=== PATIENT | male | born 1950 | race Caucasian/White ===

== ENCOUNTER → 2017-05-16 | Outpatient (CLI) | payer MEDICARE ==
[2017-05-16 10:11] LABS: EKG EKG PERFORMED
[2017-05-16 10:50] LABS: Appearance,Urine Clear (Clear); Bilirubin,Urine Negative (Negative); Glucose,Urine (UA) Negative (Negative); Ketones,Urine Negative (Negative); Leukocyte Esterase,Urine Negative (Negative); Nitrite,Urine Negative (Negative); Protein,Urine Negative (Negative); Specific Gravity,Urine 1.005 (1.001-1.035); UA Billing (MACRO vs. MICRO) CHEM; Urobilinogen,Urine <2.0 mg/dL (<2.0)
[2017-05-16 10:55] LABS: CH 31.9; HDW 2.43; HGB 14.5 gm/dL (13.0-17.5); MCV 94.2 fL (80.0-100.0); Mean Platelet Volume 7.2; RBC 4.67 m/uL (4.30-5.90); RDW 13.7 % (11.5-15.5); WBC 6.1 k/uL (3.8-10.6)
[2017-05-16 10:59] LABS: Prothrombin Time 10.2 sec (9.0-12.0)
[2017-05-16 11:00] LABS: Partial Thromboplastin Time 25.4 sec (22.0-30.0)
[2017-05-16 11:05] LABS: ALT 39 U/L (21-72); AST 32 U/L (17-59); Alkaline Phosphatase 97 U/L (38-126); Anion Gap 10 mmol/L; Blood Urea Nitrogen 16 mg/dL (9-20); Calcium 9.6 mg/dL (8.4-10.2); Carbon Dioxide 29 mmol/L (22-30); Chloride 101 mmol/L (98-107); Glucose 99 mg/dL (74-99); Non-African American GFR(MDRD) >60 (>60 ml/min/1.73 sqM); Potassium 5.7 mmol/L (3.5-5.1); Sodium 140 mmol/L (137-145); Total Bilirubin 1.1 mg/dL (0.2-1.3); Total Protein 7.3 g/dL (6.3-8.2)
== END | disposition home or self-care (01) ==
LOC: LABPAT 09:40
PROVIDERS: ATTEND Orthopaedic Surgery Sports Medicine
DX: Z01.810 Encounter for preprocedural cardiovascular examination (principal); Z01.812 Encounter for preprocedural laboratory examination
CPT/HCPCS: 36415; 80053; 81003; 85027; 85610; 85730; 87070; 93005

== ENCOUNTER 2017-05-31 10:55 | Inpatient (IN) | payer MEDICARE ==
[2017-05-21 09:34] VITALS: BMI 26.8
[~2017-05-31 10:55] MED LIST: ACETAMINOPHEN TAB 500 MG TAB PO ONE; LACTATED RINGERS 1,000 ML IV SCH; MELOXICAM 7.5 MG TAB PO ONE; MIDAZOLAM 2 MG/2 ML VIAL IV PRN; MORPHINE SULFATE 2 MG/ML SYRINGE IV PRN; ONDANSETRON 4 MG/2 ML VIAL IVP ONE; ONDANSETRON 4 MG/2 ML VIAL IVP PRN; ROPIVACAINE 246.25 MG, EPINEPHrine 0.5 MG, KETOROLAC 30 MG, cloNIDine HCL/PF 80 MCG, WA... MISCELLANE ONE; TRANEXAMIC ACID 1,000 MG in SODIUM CHLORIDE 0.9% 100 ML IVPB ONE; ceFAZolin 2 GM in SODIUM CHLORIDE 0.9% 100 ML IVPB ONE
[2017-05-31] MEDS ORDERED: LIDOCAINE 1% 20 ML VIAL (10MG/ML) FOR IV START INTRADERMA ONE (12:59)
[2017-05-31] MEDS ORDERED: DEXAMETHASONE SOD PHOSPHATE 10 MG/ML 1 ML VIAL IV ONE (13:07)
[2017-05-31] MEDS ORDERED: PROPOFOL 10 MG/ML 20 ML VIAL IV ONE (14:29)
[2017-05-31] MEDS ORDERED: MIDAZOLAM 2 MG/2 ML VIAL ONE (14:29)
[2017-05-31] MEDS ORDERED: MORPHINE SULFATE (PF) 0.3 MG/0.3 ML SYR ONE (14:29)
[2017-05-31] MEDS ORDERED: LIDOCAINE 1% INJ 10MG/ML (20 ML MDV) ONE (14:29)
[2017-05-31] MEDS ORDERED: fentaNYL (PF) 50 MCG/ML 2 ML AMP ONE (14:29)
[2017-05-31] MEDS ORDERED: PHENYLEPHRINE-0.9% NACL SYG 1 MG/10 ML SYRINGE ONE (14:29)
[2017-05-31] MEDS ORDERED: ceFAZolin 3,000 MG in SODIUM CHLORIDE 0.9% IRRIGATIO 3,000 ML IRRIGATION ONE (15:18)
[2017-05-31] MEDS ORDERED: LACTATED RINGERS 1,000 ML IV ONE (15:56)
[2017-05-31] MEDS ORDERED: MAGNESIUM HYDROXIDE 2,400 MG/10 ML CUP PO PRN (16:53)
[2017-05-31] MEDS ORDERED: HYDROcodone/APAP 7.5-325MG 1 EACH TAB PO PRN (16:53)
[2017-05-31] MEDS ORDERED: ONDANSETRON 4 MG/2 ML VIAL IVP PRN (16:53)
[2017-05-31] MEDS ORDERED: traMADol 50 MG TAB PO PRN (16:53)
[2017-05-31] MEDS ORDERED: ACETAMINOPHEN TAB 325 MG TAB PO PRN (16:53)
[2017-05-31] MEDS ORDERED: HYDROmorphone 1 MG/ML 1 ML SYRINGE IVP PRN (16:53)
[2017-05-31] MEDS ORDERED: HYDROmorphone 0.5 MG/0.5 ML SYRINGE IVP PRN ×3 (16:53)
[2017-05-31] MEDS ORDERED: NA PHOS,M-B/NA PHOS,DI-BA 133 ML ENEMA RECTAL PRN (16:53)
[2017-05-31] MEDS ORDERED: TEMAZEPAM 15 MG CAP PO PRN (16:53)
[2017-05-31] MEDS ORDERED: NALOXONE 0.4 MG/ML 1 ML VIAL IV PRN ×2 (16:53→18:45)
[2017-05-31] MEDS ORDERED: hydrOXYzine PAMOATE 25 MG CAP PO PRN (16:53)
[2017-05-31] MEDS ORDERED: DIAZEPAM 5 MG TAB PO PRN (16:53)
[2017-05-31] MEDS ORDERED: BISACODYL 10 MG SUPP RECTAL PRN (16:53)
--- NOTE | 2017-05-31 17:32 | XR ---
EXAMINATION TYPE: XR knee limited RT DATE OF EXAM: 05/31/2017 COMPARISON: NONE HISTORY: Postop TECHNIQUE: 2 views FINDINGS: There is are right knee prosthesis. Components appear in anatomic position. IMPRESSION: Right knee prosthesis without sign of a complicating process.
[2017-05-31] MEDS: LACTATED RINGERS 1,000 ML IV SCH (18:07)
[2017-05-31] MEDS ORDERED: KETOROLAC 30 MG/ML 1 ML VIAL IVP PRN ×2 (18:45)
[2017-05-31] MEDS ORDERED: MORPHINE SULFATE 10 MG/ML SYRINGE IVP PRN (18:45)
[2017-05-31] MEDS ORDERED: METOCLOPRAMIDE 5 MG/ML 2 ML VIAL IVP PRN (18:45)
[2017-05-31] MEDS ORDERED: diphenhydrAMINE 50 MG/ML 1 ML VIAL IVP PRN (18:45)
[2017-05-31] MEDS ORDERED: PROMETHAZINE INJ 6.25 MG in SODIUM CHLORIDE 0.9% 50 ML IVPB PRN (18:45)
[2017-05-31] MEDS ORDERED: NALBUPHINE 10 MG/ML AMPUL IV PRN (18:45)
[2017-05-31] MEDS ORDERED: SENNOSIDES-DOCUSATE SODIUM 1 EACH TAB PO SCH (21:00)
[2017-05-31] MEDS: ASPIRIN 325 MG TAB PO SCH (21:30)
--- NOTE | 2017-05-31 23:29 | OP ---
OPERATIVE REPORT DATE OF PROCEDURE: 05/31/2017. SURGEON: Kraig Burger MD. CAMERA MACHINIST: IVANIA Friedman. PREOPERATIVE DIAGNOSIS:: Right knee osteoarthrosis. POSTOPERATIVE DIAGNOSIS:: Right knee osteoarthrosis. OPERATION:: Right total knee arthroplasty. ANESTHESIA: Spinal with sedation. TOURNIQUET TIME: 66 minutes at 250 mmHg. COMPLICATIONS: None apparent. DRAINS: None. DISPOSITION: Postanesthesia care unit. INDICATIONS: Cortes is a very pleasant, 67-year-old male with longstanding history of right knee pain. History and physical examination are consistent with advanced right knee osteoarthrosis. He has been through significant nonoperative management up to this point. Further treatment options were discussed and he has decided to go for the right total knee arthroplasty. The risks of procedure were discussed with him in detail. These risks include, but are not limited to risk of infection, nerve damage, bleeding, pain and a small risk of deep vein thrombosis which could lead to fatal pulmonary embolism. There is also risk of loosening of the implant which could require revision operation. The patient understands these risks. All of his questions were answered to his satisfaction. An appropriate informed consent was obtained. NARRATIVE:: The patient identified in preoperative holding area. Surgical sites marked by both the patient and myself. He was given 2 g of Ancef IV for prophylactic purposes. He was then transferred to the operative suite, where he was placed supine on the operating room table. Spinal anesthetic was then administered and dosed per the anesthesia department without apparent complication. Examination under anesthesia was then performed. The patient was 5 degrees shy of full extension. He had 100 degrees of flexion. Medial collateral ligament, lateral collateral ligament and posterior cruciate ligament were stable. Tourniquet was then placed high on the right upper thigh, well-padded in preparation for surgery. The patient's right lower extremity was then prepped and draped in usual sterile fashion. Standard surgical pause was then undertaken to ensure that we were operating on the correct site and that appropriate preoperative antibiotics had been given. All staff in the room were in agreement and then we proceeded. The outlines of the patella were then marked with surgical pen. A planned 12-cm vertical incision centered over the patella was marked with a surgical pen. The leg was then exsanguinated with an Esmarch dressing. The knee was then flexed and tourniquet was inflated to 250 mmHg. The total for tourniquet time for the procedure was 66 minutes. Incision was then made with a 10 blade scalpel. Dissection was carried down sharply to the overlying fascia. Great care was taken to minimize the skin flaps. The knee was then exposed using a standard medial parapatellar approach. A small cuff of quadriceps tendon was left for suturing. He was is in quite a bit of varus preoperatively. A standard significant medial release was then made. The superficial medial collateral ligament was dissected off the bone around to the posterior aspect of the proximal tibia. The medial meniscus was then excised as well. The lateral meniscus was also released anteriorly. The leg was externally rotated. The patella was everted and the knee was flexed. The retractors were then placed to protect the collateral ligaments. I then proceeded to remove the infrapatellar fat pad. This was excised sharply tangentially with the fibers of the patellar tendon. I then proceeded to remove peripheral osteophytes. This was done with a rongeur. I then proceeded with the distal femoral resection. He did have a flexion contracture. An extra 2 mm removal of bone was planned for. The femoral canal was then entered in the midline of the femur approximately 10 mm anterior to the origin of the posterior cruciate ligament. The mariza was then advanced down the center of the femur and placed intramedullary. Based on preop radiographs, the angle between the anatomic and mechanical axis of the femur was approximately 4 to 5 degrees. The valgus angle of this femoral cutting guide was then set at 4 degrees for the right knee. The distal femoral cutting guide was then advanced over the intramedullary mariza. This was seated firmly against the femur. I then as mentioned planned to take 9 mm off the distal femur. The cutting block was then secured onto the femur with pins. The jig was then removed and the distal femoral cut was made through the slot of the block. The pins were then removed and the distal femoral cutting block was removed. The accuracy of the distal femoral cuts was checked with 2 flat bars. I then proceed with femoral sizing. The posterior referencing sizing guide was held firmly against the resected distal surface of the femur. The posterior condyles were resting on the posterior plane of the guide. The sizing stylus was then placed onto the anterior femur. This was measured as a size 9. I then assessed for femoral rotation. The plan was for 3 degrees of external rotation. Three degrees of external rotation was placed onto the jig. The holes were then marked. I then confirmed the rotation by 3 separate methods. This was done using the epicondylar axis as well as Whitesides line and posterior referencing. It was deemed that the external rotation was proper. I then went forward with placing the femoral cutting block. This was placed over the previously placed pin holes. The Lee wing was then placed onto the anterior slots to ensure that we would not notch the anterior femur with the anterior femoral cut. I then proceed with the anterior femoral cut. This was flush with the anterior cortex of the femur. The posterior cuts were then made followed by the anterior chamfer cut and then the posterior chamfer cut. The cutting block was then removed. Throughout the resection, the collateral ligaments were protected with retractors. I then placed a trial size 9 femur. It fit very nicely medial-lateral and fit flush with the distal end of the femur. The drill holes were then made. I then proceeded with the tibial cut. I planned for a cruciate-retaining knee. The guide was then placed and set for varus, valgus and for slope. The height was set for approximately 2 mm resection from the medial tibial plateau which was the lower side. I was happy with the alignment and the amount of resection. The cutting block was then pinned to the proximal tibia. The alignment mariza was removed and the proximal tibia was resected with a reciprocating saw. Again, this was done with retractors protecting the collateral ligaments as well as the posterior cruciate ligament. I then proceeded to evaluate the flexion and extension gaps. A 10-mm block was placed. The flexion-extension gaps were equal. I then proceeded with resection of posterior osteophytes. He had very extensive posterior osteophytes. This is done using a curved osteotome. This resected the posterior osteophytes and posterior capsule stripping was also done off the posterior aspect of the femur at this time. The osteophytes were removed. I then proceeded with resection of the patella. The thickness of patella was measured using the caliper. The thickness was 26 mm. The thickness of the anticipated patellar dome was taken into account. Resection was then performed and confirmed to be equal in 4 quadrants using a caliper. Approximately 14 mm of bone remained after the resection. A 35 x 9 standard patellar trial was then placed. The holes were then drilled and the trial was then placed. I then proceeded with sizing of tibial plate. A size G tibial plate fit very nicely. I then placed the trial femur and the tibial tray and the patellar button. A size 10- mm trial tibial insert was also placed. The components fit very nicely. He had full flexion and extension. The extension and flexion gaps were equal and stable to varus and valgus stress. The patella tracked appropriately. The tibial tray rotation was marked with a Bovie. This was externally rotated properly. I then proceed with tibial preparation. I first drilled the femoral holes and removed the femoral component. The tibial tray was then set for proper external rotation, as well as mediolateral placement onto the tibia. It was then pinned into place. I then proceed with punching the keel. I then decided to proceed with cementing of all of our components. The knee was thoroughly irrigated with sterile saline solution via pulse lavage. The lateral geniculate artery was identified and cauterized. All blood was removed from the bone of the tibia, femur and patella with pulse lavage. I then proceed with cementing. Two packs of antibiotic bone cement were prepared on the back table by the ophthalmology surgical technician. I then proceeded with cementing of the tibia first. Cement was impacted into the keel as well as deeply seated into the bone. A 2nd coat of cement was then placed. The tibia was then impacted into place. Excess cement was removed with Cushings and jokers. I then proceed with cementing the femoral component. The femoral component was also cemented using standard technique. Excess cement was removed. A 10-mm trial insert was then placed into the knee. It was brought into full extension with a constant axial load placed until the cement had hardened. The patellar component was then cemented. This was held firmly with a compressive device until the cement had dried. When the cement had dried, the knee was taken out of extension. All excess cement was removed from around the prosthesis. I then proceed to trial the knee with a 12-mm insert and then up to a 14-mm insert. The flexion and extension gaps felt much better with the 14-mm insert. The knee was stable. It came into full extension. It was decided to go forward with a 14-mm cross-linked cruciate-retaining tibial insert. Polyethylene was then placed onto the tibial tray and locked into place. The knee was then reduced. The knee was again further irrigated with sterile saline solution with antibiotic added. The tourniquet was then deflated. Total tourniquet time was 66 minutes at 250 mmHg. Final components were Marcelle Persona size 9 cruciate-retaining femoral component, a size G tibial tray, a 14-mm medial congruent cruciate-retaining polyethylene insert, and a 35 x 9-mm patella. I then proceeded with closure. Again, the knee was thoroughly irrigated. The quadriceps tendon and medial retinaculum were reapproximated with a #2 Ethibond suture. The extensor mechanism was then closed with a running #2 Quill suture. Subcutaneous tissues were then closed with 2-0 Vicryl interrupted suture. The skin was closed with a running 3-0 Quill suture. Dermabond was applied to the incision. A sterile compressive dressing was then applied. All sponge and needle counts were deemed correct prior to closure. The patient tolerated the procedure without apparent complication. He was transferred to the recovery room in stable condition. MMODL / IJN: [id number] /
[2017-06-01] MEDS ORDERED: ceFAZolin IN SWFI 2 GM/20 ML SYRINGE IVP SCH
[2017-06-01] MEDS: ceFAZolin 2 GM in SODIUM CHLORIDE 0.9% 100 ML IVPB SCH ×2 (00:54→08:59)
[2017-06-01] MEDS: LACTATED RINGERS 1,000 ML IV SCH (02:13)
[2017-06-01 06:49] LABS: Basophils % (A) 0 %; CH 30.6; CHCM 33.3; Eosinophils % (A) 0 %; HCT 37.9 % (39.0-53.0); HDW 2.53; HGB 12.5 gm/dL (13.0-17.5); Luc # (Auto) 0.08; Luc % (Auto) 1; Lymphocytes # (A) 0.6 k/uL (1.0-4.8); Lymphocytes % (A) 4 %; MCH 30.4 pg (25.0-35.0); MCHC 32.8 g/dL (31.0-37.0); MCV 92.5 fL (80.0-100.0); Mean Platelet Volume 6.8; Monocytes # (A) 0.9 k/uL (0-1.0); Monocytes % (A) 6 %; Neutrophils # (A) 13.7 k/uL (1.3-7.7); Neutrophils % (A) 90 %; RDW 12.4 % (11.5-15.5); WBC 15.3 k/uL (3.8-10.6); WBC (Perox) 15.85
[2017-06-01] MEDS: ASPIRIN 325 MG TAB PO SCH (08:57)
[2017-06-01] MEDS: HYDROcodone/APAP 7.5-325MG 1 EACH TAB PO PRN ×2 (08:57→13:13)
--- NOTE | 2017-06-01 09:18 | P.DS ---
Providers Date of admission: 05/31/17 12:05 Expected date of discharge: 06/01/17 Attending physician: Kraig Burger Consults: 05/31/17 16:53 Consult Physician Routine Consulting Provider: Nick Crooks Consult Reason/Comments: post op medical management Do you want consulting provider notified?: Yes Primary care physician: Jose Carlos Chávez - Discharge Diagnosis(es) (1) Osteoarthritis of right knee Patient was admitted to the OR on 05/31/17 to undergo right total knee arthroplasty. He had failed conservative measures as an outpatient and desired to proceed with elective surgery after given informed consent. He underwent the above procedure which he tolerated well without complication. Postoperative hospital course has remained without complication. On day of discharge he is afebrile, vital signs stable, labs within acceptable ranges, tolerating by mouth meds and diet, voiding without difficulty, positive flatus, denies abdominal pain or calf pain, pain is controlled on oral pain medication and has no new complaints. Wound is benign, neurovascular status is intact, calf is soft and nontender, abdomen soft and nontender. Review of systems is negative for numbness, tingling, fever, chills, chest pain, shortness breath, nausea, vomiting, dizziness, headaches, slurred speech or other Current Visit: Yes Status: Acute Priority: Medium Procedures: Right total knee arthroplasty Patient Condition at Discharge: Good Plan - Discharge Summary Discharge Rx Participant: Yes New Discharge Prescriptions: New Aspirin 325 mg PO BID #60 tab Docusate [Colace] 100 mg PO BID #60 capsule HYDROcodone/APAP 7.5-325MG [Benoit 7.5-325] 1 - 2 each PO Q6HR PRN #90 tab PRN Reason: Pain No Action Ibuprofen [Motrin] 800 mg PO TID PRN PRN Reason: Pain Discharge Medication List Ibuprofen [Motrin] 800 mg PO TID PRN 05/21/17 [History] Aspirin 325 mg PO BID #60 tab 06/01/17 [Rx] Docusate [Colace] 100 mg PO BID #60 capsule 06/01/17 [Rx] HYDROcodone/APAP 7.5-325MG [Benoit 7.5-325] 1 - 2 each PO Q6HR PRN #90 tab [Rx] Follow up Appointment(s)/Referral(s): Kraig Burger MD [STAFF PHYSICIAN] - 10 Days Activity/Diet/Wound Care/Special Instructions: Keep wound clean and dry Take meds as directed Follow-up with Dr. Burger in office Weight-bear as tolerated May shower in 72 hours Discharge Disposition: HOME WITH HOME HEALTH SERVICES
[2017-06-01 09:23] VITALS: BP 124/77; PULSE 93; RESP 15; TEMP 98
--- NOTE | 2017-06-01 11:02 | P.PN ---
Progress Note - Text 06/01 650am 67-year-old male status post total knee replacement by Dr. Burger. Patient seen this morning's of 0 william's of nausea vomiting. Patient has complains of pruritus doing well.,,
[2017-06-01] MEDS ORDERED: MULTIVITAMINS, THERA 1 EACH TAB PO SCH (12:00)
--- NOTE | 2017-06-01 22:07 | P.CONS ---
History of Present Illness - Reason for Consult Consult date: 06/01/17 Leukocytosis and postoperative medical management - Chief Complaint Right knee elective surgery - History of Present Illness Patient is a 67-year-old male with a known history of osteoarthritis was admitted to the hospital for elective right total knee arthroplasty. Patient underwent procedure and currently right knee pain is better. No complaints of fever or chills. No complaints of chest pain or short of breath or worsening leg swelling. Patient denied any nausea or vomiting. Patient is tolerating oral diet. Patient was found to have leukocytosis with WBC count increased to 15.2. Otherwise no signs of infection noted Review of Systems Constitutional: Patient denies any fever or chills . No generalized weakness or weight loss. Abdomen: Patient denied nausea vomiting and diarrhea and abdominal pain. Cardiovascular: Patient denies any chest pain or short of breath no palpitations. Respiratory: patient denied any cough is from production. No shortness of breath Neurologic: Patient denied any numbness or tingling headache. Musculoskeletal: Patient denies any complaints of joint swelling or deformity. Skin: Negative Psychiatric: Negative Endocrine: No heat or cold intolerance. No recent weight gain. Genitourinary: No dysuria or hematuria. All other 14 point ROS negative except the above Past Medical History Past Medical History: Osteoarthritis (OA) History of Any Multi-Drug Resistant Organisms: None Reported Past Surgical History: Hernia Repair, Orthopedic Surgery Additional Past Surgical History / Comment(s): tennis elbow repair,finger repair Past Anesthesia/Blood Transfusion Reactions: No Reported Reaction Additional Past Anesthesia/Blood Transfusion Reaction / Comm: no hx blood transfusion Past Psychological History: No Psychological Hx Reported Smoking Status: Never smoker Past Alcohol Use History: Occasional Past Drug Use History: None Reported - Past Family History Mother Family Medical History: Deep Vein Thrombosis (DVT) Father Family Medical History: Cancer Additional Family Medical History / Comment(s): prostate Sister(s) Family Medical History: Cancer, Deep Vein Thrombosis (DVT) Additional Family Medical History / Comment(s): breast Medications and Allergies Home Medications Medication Instructions Recorded Confirmed Type Ibuprofen [Motrin] 800 mg PO TID PRN 05/21/17 05/31/17 History Aspirin 325 mg PO BID #60 tab 06/01/17 Rx Docusate [Colace] 100 mg PO BID #60 capsule 06/01/17 Rx HYDROcodone/APAP 7.5-325MG [[place] 1 - 2 each PO Q6HR PRN #90 tab 06/01/17 Rx 7.5-325] Allergies Allergy/AdvReac Type Severity Reaction Status Date / Time No Known Allergies Allergy Verified 05/30/17 09:45 Physical Exam Vitals: Vital Signs Temp Pulse Pulse Pulse Resp BP BP 06/01/17 09:15 98.0 F 93 15 124/77 06/01/17 07:40 97.9 F 88 16 147/81 06/01/17 01:25 98.0 F 73 16 05/31/17 21:00 98.3 F 76 92 H 05/31/17 19:34 97.7 F 05/31/17 19:15 62 05/31/17 19:00 99 05/31/17 18:45 93 05/31/17 18:30 69 05/31/17 18:15 92 05/31/17 18:00 60 05/31/17 17:45 97.8 F 68 15 05/31/17 17:37 72 16 05/31/17 17:23 72 16 05/31/17 17:08 65 16 05/31/17 16:53 97.1 F L 81 16 05/31/17 14:00 74 18 05/31/17 12:37 98.3 F 83 16 158/86 BP Pulse Ox 06/01/17 09:15 06/01/17 07:40 95 06/01/17 01:25 100/60 93 L 05/31/17 21:00 120/71 05/31/17 19:34 05/31/17 19:15 109/72 05/31/17 19:00 118/92 05/31/17 18:45 117/80 05/31/17 18:30 114/59 05/31/17 18:15 117/83 05/31/17 18:00 107/68 05/31/17 17:45 110/79 95 05/31/17 17:37 104/61 99 05/31/17 17:23 105/57 98 05/31/17 17:08 103/59 98 05/31/17 16:53 97/59 93 L 05/31/17 14:00 124/78 98 05/31/17 12:37 96 Intake and Output 05/31/17 06/01/17 06/01/17 22:59 06:59 14:59 Intake Total 851 500 Output Total 100 Balance 751 500 Intake: IV 651 Intake, IV Titration 200 Amount Lactated Ringers 1,000 ml 200 @ 100 mls/hr IV .Q10H LENY Rx#:[id number] Oral 500 Output: Estimated Blood Loss 100 Other: # Voids 1 Weight 89.811 kg PHYSICAL EXAMINATION: Patient is lying in the bed comfortably, no acute distress, awake alert and oriented.. HEENT: Normocephalic. Neck is supple. Pupils reactive. Nostrils clear. Oral cavity is moist. Ears reveal no drainage. Neck reveals no JVD, carotid bruits, or thyromegaly. CHEST EXAMINATION: Trachea is central. Symmetrical expansion. Lung vick clear to auscultation and percussion. CARDIAC: Normal S1, S2 with no gallops. No murmurs ABDOMEN: Soft. Bowel sounds normal. No organomegaly. No abdominal bruits. Extremities: reveal no edema. No clubbing or cyanosis. Neurologically awake, alert, oriented x3 with well-coordinated movements. No focal deficits noted Skin: No rash or skin lesions. Psychiatric: Operative. Nonsuicidal Musculoskeletal: No joint swelling or deformity. Normal range of motion. Right knee surgical site intact. no drainage. Results CBC & Chem 7: 06/01/17 06:24 Labs: Abnormal Lab Results - Last 24 Hours (Table) 06/01/17 Range/Units 06:24 WBC 15.3 H (3.8-10.6) k/uL RBC 4.10 L (4.30-5.90) m/uL Hgb 12.5 L (13.0-17.5) gm/dL Hct 37.9 L (39.0-53.0) % Neutrophils # 13.7 H (1.3-7.7) k/uL Lymphocytes # 0.6 L (1.0-4.8) k/uL Assessment and Plan Assessment: #1 osteoarthritis status post right total knee arthroplasty #2 leukocytosis likely due to postsurgical inflammation reaction. No signs of infection noted #3 mild normocytic anemia. Clyo Plan: Patient will be continued on current management. Pain medications and bowel regimen. Anti-coagulation with aspirin twice a day. Continue with physical therapy and will follow up with you. Monitor H&H and repeat CBC. Thank you for your consult.
== END 2017-06-01 13:33 | disposition home health service (06) | DRG 470 ==
LOC: 2ORMAIN 12:05 → 3SUR 16:55
PROVIDERS: ADMIT Orthopaedic Surgery Sports Medicine; ATTEND Orthopaedic Surgery Sports Medicine
PROC: 0SRC0J9 Replacement of Right Knee Joint with Synthetic Substitute, Cemented, Open Approach (ICD-10-PCS; principal; 2017-05-31 15:10)
DX: M17.11 Unilateral primary osteoarthritis, right knee (principal); D64.9 Anemia, unspecified; M25.761 Osteophyte, right knee; L29.9 Pruritus, unspecified; D72.829 Elevated white blood cell count, unspecified; H91.90 Unspecified hearing loss, unspecified ear; Z79.82 Long term (current) use of aspirin; Z87.19 Personal history of other diseases of the digestive system; Z80.3 Family history of malignant neoplasm of breast; Z80.42 Family history of malignant neoplasm of prostate; Z79.1 Long term (current) use of non-steroidal anti-inflammatories (NSAID); Z79.891 Long term (current) use of opiate analgesic; Z83.2 Family history of diseases of the blood and blood-forming organs and certain disorders involving the immune mechanism; Z83.3 Family history of diabetes mellitus; Z82.49 Family history of ischemic heart disease and other diseases of the circulatory system
CPT/HCPCS: 85025; 88300

== ENCOUNTER → 2019-02-07 | Outpatient (CLI) | payer MEDICARE ==
--- NOTE | 2019-02-08 16:47 | MR ---
EXAMINATION TYPE: MR brain wo/w con DATE OF EXAM: 02/07/2019 COMPARISON: None HISTORY: Dementia CONTRAST: Performed utilizing 7.5 mL intravenous Gadavist gadolinium contrast. TECHNIQUE: Multiplanar, multiecho imaging on a 3.0 Esmer magnet is performed through the brain. Stud y is performed within 24 hours of arrival to the hospital. The craniovertebral junction is normal. The pituitary is normal. Diffusion-weighted imaging is performed. There is a punctate hyperintensity at the left occipital ve rtex, series 305 image 2-4. Unclear whether this is artifact or a acute change within the gyrus. There are extensive punctate white matter changes present in the periventricular white matter, some o f which are perpendicular to the ventricles. Findings are nonspecific. Multiple sclerosis however sadie uld be considered within the differential. Findings can be compatible with chronic white matter ische fide changes. Ischemic type changes appear to be present on the T1 postcontrast images without evidenc e of suspicious enhancement. Ventricles and sulci are appropriate for the patient age. No suspicious enhancement is evident IMPRESSIONS: 1. Solitary hyperintensity within the gyrus of the left occipital vertex. Differential could include an acute ischemic change that level could be artifact. 2. Extensive periventricular and scattered deep white matter changes are nonspecific. Microvascular i schemic change and multiple sclerosis should be considered. Other etiologies include but are not limi tyrone to, vasculitis. This is more extensive than typically identified with Lyme Disease.
== END | disposition home or self-care (01) ==
LOC: RADMRIMAIN 11:25
PROVIDERS: ATTEND Psychiatry & Neurology Neurology
DX: R90.89 Other abnormal findings on diagnostic imaging of central nervous system (principal); I67.82 Cerebral ischemia
CPT/HCPCS: 70553; A9585